=== PATIENT | female | born 1935 | race Caucasian/White ===

== ENCOUNTER 2017-01-04 00:55 | Inpatient (IN) | payer MEDICARE, OTHER ==
[2017-01-04] VITALS (7 sets, daily range): BP systolic 125–166; BP diastolic 55–88
[~2017-01-04] VITALS: Ht 162.6 cm; Wt 68.0 kg
[2017-01-04] MEDS ORDERED: LEVOTHYROXINE50 MCG ORAL (01:05)
[2017-01-04] MEDS ORDERED: SIMVASTATIN40 MG ORAL (01:05)
[2017-01-04] MEDS ORDERED: STARLIX60 MG ORAL (01:05)
[2017-01-04] MEDS ORDERED: BUPROPION HCL150 M3 ORAL (01:05)
[2017-01-04] MEDS ORDERED: ASPIR 8181 MG ORAL (01:05)
[2017-01-04] MEDS ORDERED: JENTADUETO 2.51 EAC2 PO (01:05)
[2017-01-04] MEDS ORDERED: LOSARTAN POTASS25 MG ORAL (01:05)
[2017-01-04] MEDS ORDERED: ATIVAN0.5 MG ORAL (01:09)
[2017-01-04 02:03] LABS: APPEARANCE,URINE CLEAR; KETONES,URINE NEGATIVE (NEGATIVE); LEUKOCYTE ESTERASE ,URINE NEGATIVE (NEGATIVE); NITRITE,URINE NEGATIVE (NEGATIVE); PH,URINE 6 (4.5-8.0); PROTEIN,URINE NEGATIVE (NEGATIVE); UROBILINOGEN,URINE NORMAL MG/DL (0.0-1.0)
[2017-01-04 02:04] LABS: BASOPHILS % (AUTO) 0.7 % (0.0-2.0); EOSINOPHILS % (AUTO) 1.4 % (0.0-3.0); LYMPHOCYTES % (AUTO) 21.3 % (20.0-45.0); MEAN CORPUSCULAR HEMOGLOBIN 29.8 PG (27.0-31.0); MEAN CORPUSCULAR VOLUME 90 FL (80-99); MEAN PLATELET VOLUME 7.4 FL (6.5-10.1); MONOCYTES % (AUTO) 9.6 % (1.0-10.0); NEUTROPHILS % (AUTO) 66.9 % (45.0-75.0); PLATELET COUNT 279 K/UL (150-450); RED BLOOD COUNT 4.04 M/UL (4.20-5.40); RED CELL DISTRIBUTION WIDTH 12.4 % (11.6-14.8); WHITE BLOOD COUNT 7.9 K/UL (4.8-10.8)
[2017-01-04 02:05] LABS: RBC,URINE 0-2 /HPF (0 - 2); SQUAMOUS EPITHELIAL CELL,UR FEW /LPF (NONE/OCC); WBC,URINE 0 /HPF (0 - 2)
[2017-01-04 02:16] LABS: ALANINE AMINOTRANSFERASE 9 U/L (3-33); ANION GAP 13 (5-15); ASPARTATE AMINO TRANSFERASE 12 U/L (5-40); CALCIUM 10.5 mg/dL (8.6-10.2); CARBON DIOXIDE 24 mEQ/L (20-30); CHLORIDE 97 mEQ/L (98-107); CREATININE 0.9 mg/dL (0.5-0.9); HEMOLYSIS 8; POTASSIUM 4.4 mEQ/L (3.4-4.9); SODIUM 134 mEQ/L (135-145); TOTAL PROTEIN 7.2 g/dL (6.6-8.7)
[2017-01-04 02:17] LABS: TROPONIN I < 0.30 ng/mL (<=0.30)
--- NOTE | 2017-01-04 02:38 | Emergency Room Report ---
History of Present Illness General Chief Complaint: Altered Mental Status Source: Family Member, EMS Present Illness HPI Is an 81-year-old female with end-stage Alzheimer. Her daughter says contacted in-house hospice. Patient has been increasing agitation. They started her on low-dose Ativan. She is started yesterday. She had one dose today but that did not help. She was given temazepam also. Her son called 911 because her agitation is much worse. She keep her to get out of bed. They had to call 911. Now she is very sedated sleeping. There is no fever or chills. No nausea no vomiting. Similar symptom last week. Allergies: Coded Allergies: PENICILLINS (Unverified Allergy, Unknown, 01/04/17) Patient History Past Medical History: see triage record, old chart reviewed Past Surgical History: other Pertinent Family History: none Social History: Denies: smoking Now: No Immunizations: other Reviewed Nursing Documentation: PMH: Agreed, PSxH: Agreed Nursing Documentation-PM Past Medical History: No History, Except For Hx Diabetes: Yes History Of Psychiatric Problem: Yes - alzheimers dementia Review of Systems Constitutional: Reports: malaise, weakness Eye: Denies: eye pain, blurred vision ENT: Denies: ear pain, nose congestion, throat swelling Respiratory: Denies: cough, shortness of breath Cardiovascular: Denies: chest pain, palpitations Gastrointestinal: Denies: abdominal pain, diarrhea, nausea, vomiting Musculoskeletal: Denies: back pain, joint pain Skin: Denies: rash Neurological: Denies: headache, numbness Endocrine: Denies: increased thirst, increased urine Hematologic/Lymphatic: Denies: easy bruising All Other Systems: negative except mentioned in HPI Physical Exam Vital Signs Date Time Temp Pulse Resp B/P (MAP) Pulse Ox O2 Delivery O2 Flow Rate FiO2 01/04/17 00:47 97.5 65 12 128/65 93 Room Air vitals normal Sp02 EP Interpretation: reviewed, normal General Appearance: well appearing, no apparent distress, other - Sedated Head: normocephalic, atraumatic Eyes: bilateral eye PERRL, bilateral eye EOMI ENT: hearing grossly normal, normal pharynx Neck: full range of motion, supple, no meningismus Respiratory: chest non-tender, lungs clear, normal breath sounds Cardiovascular #1: regular rate, rhythm, no murmur Gastrointestinal: normal bowel sounds, non tender, no mass, no organomegaly, no bruit, non-distended Musculoskeletal: back normal, normal range of motion Neurologic: grossly normal Psychiatric: mood/affect normal Skin: warm/dry Medical Decision Making Diagnostic Impression: Primary Impression: Altered mental status Qualified Codes: R41.82 - Altered mental status, unspecified Additional Impressions: Encephalopathy acute Alzheimer's dementia with behavioral disturbance Qualified Codes: G30.1 - Alzheimer's disease with late onset; F02.81 - Dementia in other diseases classified elsewhere with behavioral disturbance ER Course patient present with exacerbation of her Alzheimer. No evidence of infection. No evidence of TIA or CVA. Family has a hard time taking care of her at home. Will admit for medication management. For now her DO NOT RESUSCITATE status is up in the air. Lab Results Impression labs normal EKG Diagnostic Results Rate: normal Rhythm: NSR ST Segments: no acute changes Rhythm Strip Diag. Results Rhythm Strip Time: 02:38 EP Interpretation: yes Rate: 59 Rhythm: NSR, no PVC's, no ectopy Chest X-Ray Diagnostic Results Chest X-Ray Diagnostic Results : Chest X-Ray Ordered: Yes # of Views/Limited/Complete: 1 View Indication: Shortness of Breath EP Interpretation: Yes Interpretation: no consolidation, no effusion, no pneumothorax, no acute cardiopulmonary disease Interpreting ER Provider: Electronically signed by Fan Bautista MD CT/MRI/US Diagnostic Results CT/MRI/US Diagnostic Results : Imaging Test Ordered: CT head Impression read by radiologist. Negative. Last Vital Signs Date Time Temp Pulse Resp B/P (MAP) Pulse Ox O2 Delivery O2 Flow Rate FiO2 01/04/17 00:47 97.5 65 12 128/65 93 Room Air Status: improved Disposition: ADMITTED INPATIENT Condition: Serious FAN BAUTISTA M.D. Jan 04, 2017 02:38
[2017-01-04] MEDS ORDERED: Haloperidol 5mg/ml Inj IM ONE (04:00)
[2017-01-04] MEDS ORDERED: Mylanta II UD 30ml ORAL PRN (07:15)
[2017-01-04] MEDS ORDERED: Morphine Sulfate 2mg/ml Inj IVP PRN (07:15)
[2017-01-04] MEDS ORDERED: Miralax 17gm pkt ORAL PRN (07:15)
[2017-01-04] MEDS ORDERED: Zolpidem 5mg tab ORAL PRN (07:15)
[2017-01-04] MEDS: BuPROPion SR 150mg tab ORAL SCH ×2 (09:00→20:26)
[2017-01-04] MEDS: LORazepam 0.5mg tab ORAL SCH ×3 (09:43→17:40)
[2017-01-04] MEDS: Losartan 25mg tab ORAL SCH (09:44)
--- NOTE | 2017-01-04 09:44 | Diagnostic Imaging Report ---
Indication: Altered mental status Technique: Contiguous 5 mm thick transaxial imaging of the head obtained in a Siemens Sensation [address] scanner. Soft tissue and bone windows generated. Total Dose length Product (DLP): [address] Dose Index Volume (CTDIvol): 70.38, 0.15 mGy Comparison: none Findings: There is moderate prominence of the ventricles, basal cisterns, and cerebral sulci consistent with atrophy. Moderate, nonspecific, white matter hypoattenuation is noted throughout the brain consistent with chronic small vessel disease. There is no midline shift, edema, acute hemorrhage, mass effect, or abnormal extra-axial fluid collections. Bones and extra osseous soft tissues are unremarkable. Impression: No acute intracranial bleed, mass effect or edema. Moderate atrophy of the brain. Evidence of chronic small vessel disease involving white matter tracts. The CT scanner at [facility] is accredited by the [employer] and the scans are performed using dose optimization techniques as appropriate to a performed exam including Automatic Exposure control.
--- NOTE | 2017-01-04 10:31 | Diagnostic Imaging Report ---
Indication: Dyspnea Comparison: None A single view chest radiograph was obtained. Findings: Cardiomediastinal appearance is within normal limits for age. Pulmonary vascularity is appropriate. The diaphragmatic contour is smooth and costophrenic angles are sharp. No pleural effusions are identified. The bones are moderately osteopenic. Impression: No acute findings
--- NOTE | 2017-01-04 15:34 | Cardiology Report ---
APPROVED REPORT EKG Measurement Heart [id number] Normal sinus rhythm Left axis deviation Septal infarct, age undetermined Abnormal ECG
[2017-01-04] MEDS: LORazepam Inj 2mg/ml 1ml IV PRN (20:26)
[2017-01-04] MEDS: Heparin 5000 units/ml inj SUBQ SCH (20:27)
[2017-01-04] MEDS ORDERED: Atorvastatin 20mg tab ORAL SCH (21:00)
--- NOTE | 2017-01-04 22:11 | History and Physical ---
History of Present Illness General Date patient seen: Jan 04, 2017 Reason for Hospitalization: Altered Mental Status Present Illness HPI 81-year-old female with end-stage Alzheimer brought in by paramedics with CC of increasing agitation. They started her on low-dose Ativan, but that did not help. She was given temazepam also. Her son called 911 because her agitation is much worse. She keep her to get out of bed. She is admitted for uncontrollable behavior. She is awake and confused and doesn't seem to be in acute distress. Pt's choco is at bed site who gives the information. Allergies: Coded Allergies: PENICILLINS (Unverified Allergy, Unknown, 01/04/17) Medication History Scheduled Aspirin* (Aspir 81*), 81 MG ORAL DAILY, (Reported) Bupropion Hcl* (Bupropion Hcl Sr*), 150 MG ORAL EVERY 12 HOURS, (Reported) Levothyroxine Sodium* (Levothyroxine Sodium*), 50 MCG ORAL DAILY, (Reported) Linagliptin/Metformin Hcl (Jentadueto 2.5 Mg-1000 Mg Tab), 1 EACH PO BID, ( Reported) Lorazepam* (Ativan*), 0.5 MG ORAL THREE TIMES A DAY, (Reported) Losartan Potassium* (Losartan Potassium*), 100 MG ORAL DAILY, (Reported) Nateglinide* (Starlix*), 120 MG ORAL THREE TIMES A DAY, (Reported) Simvastatin (Zocor), 40 MG ORAL BEDTIME, (Reported) Patient History Healthcare decision maker Resuscitation status Full Code Advanced Directive on File No Past Medical/Surgical History Past Medical/Surgical History: (1) Alzheimer's dementia with behavioral disturbance Review of Systems All Other Systems: negative except mentioned in HPI Physical Exam General Appearance: WD/WN, no apparent distress Lines, tubes and drains: peripheral HEENT: normocephalic, atraumatic Neck: non-tender, normal alignment Respiratory/Chest: chest wall non-tender, lungs clear Cardiovascular/Chest: normal peripheral pulses, normal rate Abdomen: normal bowel sounds, non tender, abnormal bowel sounds Genitourinary/Rectal: normal genital exam Extremities: normal range of motion, non-tender Skin Exam: normal pigmentation 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 Last 24 Hour Vital Signs Date Time Temp Pulse Resp B/P (MAP) Pulse Ox O2 Delivery O2 Flow Rate FiO2 01/04/17 20:00 97.8 84 19 166/86 96 Room Air 01/04/17 16:44 97.0 78 20 162/88 98 Room Air 01/04/17 09:44 125/66 01/04/17 08:33 97.2 62 19 125/66 98 Room Air 01/04/17 05:00 97.3 56 18 136/60 95 Room Air 01/04/17 04:50 98.0 63 15 140/60 98 Room Air 01/04/17 04:40 98.0 63 15 140/60 98 Room Air 01/04/17 03:05 98.2 68 16 148/63 99 Room Air 01/04/17 01:00 98.1 57 15 152/55 98 Room Air 01/04/17 00:47 97.5 65 12 128/65 93 Room Air Intake and Output 01/04/17 01/05/17 19:00 07:00 Intake Total 480 ml Balance 480 ml Intake Oral 480 ml # Voids 2 Laboratory Tests Test 01/04/17 01:45 White Blood Count 7.9 K/UL (4.8-10.8) Red Blood Count 4.04 M/UL (4.20-5.40) L Hemoglobin 12.0 G/DL (12.0-16.0) Hematocrit 36.5 % (37.0-47.0) L Mean Corpuscular Volume 90 FL (80-99) Mean Corpuscular Hemoglobin 29.8 PG (27.0-31.0) Mean Corpuscular Hemoglobin Concent 33.0 G/DL (32.0-36.0) Red Cell Distribution Width 12.4 % (11.6-14.8) Platelet Count 279 K/UL (150-450) Mean Platelet Volume 7.4 FL (6.5-10.1) Neutrophils (%) (Auto) 66.9 % (45.0-75.0) Lymphocytes (%) (Auto) 21.3 % (20.0-45.0) Monocytes (%) (Auto) 9.6 % (1.0-10.0) Eosinophils (%) (Auto) 1.4 % (0.0-3.0) Basophils (%) (Auto) 0.7 % (0.0-2.0) Urine Color Yellow Urine Appearance Clear Urine pH 6 (4.5-8.0) Urine Specific [place] 1.010 (1.005-1.035) Urine Protein Negative (NEGATIVE) Urine Glucose (UA) Negative (NEGATIVE) Urine Ketones Negative (NEGATIVE) Urine Occult Blood Negative (NEGATIVE) Urine Nitrite Negative (NEGATIVE) Urine Bilirubin Negative (NEGATIVE) Urine Urobilinogen Normal MG/DL (0.0-1.0) Urine Leukocyte Esterase Negative (NEGATIVE) Urine RBC 0-2 /HPF (0 - 2) Urine WBC 0 /HPF (0 - 2) Urine Squamous Epithelial Cells Few /LPF (NONE/OCC) Urine Bacteria None /HPF (NONE) Sodium Level 134 mEQ/L (135-145) L Potassium Level 4.4 mEQ/L (3.4-4.9) Chloride Level 97 mEQ/L (98-107) L Carbon Dioxide Level 24 mEQ/L (20-30) Anion Gap 13 (5-15) Blood Urea Nitrogen 22 mg/dL (7-23) Creatinine 0.9 mg/dL (0.5-0.9) Estimat Glomerular Filtration Rate mL/min (>60) Glucose Level 117 mg/dL (74-106) H Calcium Level 10.5 mg/dL (8.6-10.2) H Total Bilirubin 0.2 mg/dL (0.0-1.2) Aspartate Amino Transf (AST/SGOT) 12 U/L (5-40) Alanine Aminotransferase (ALT/SGPT) 9 U/L (3-33) Alkaline Phosphatase 66 U/L (35-104) Troponin I < 0.30 ng/mL (<=0.30) Total Protein 7.2 g/dL (6.6-8.7) Albumin 3.6 g/dL (3.5-5.2) Globulin 3.6 g/dL Albumin/Globulin Ratio 1.0 (1.0-2.7) Height (Feet): 5 Height (Inches): 4.00 Weight (Pounds): 150 Medications Current Medications Medications (Trade) Dose Ordered Sig/Taryn Route PRN Reason Start Time Stop Time Status Last Admin Dose Admin Acetaminophen (Tylenol) 650 mg Q4H PRN ORAL fever 01/04/17 07:15 02/03/17 07:14 Al Hydroxide/Mg Hydroxide (Mylanta II) 30 ml Q6H PRN ORAL dyspepsia 01/04/17 07:15 02/03/17 07:14 Aspirin (ASA) 81 mg DAILY ORAL 01/05/17 09:00 02/04/17 08:59 Atorvastatin Calcium (Lipitor) 20 mg QHS ORAL 01/04/17 21:00 02/03/17 20:59 01/04/17 20:25 Bupropion HCl (Wellbutrin SR) 150 mg EVERY 12 HOURS ORAL 01/04/17 09:00 02/03/17 08:59 01/04/17 20:26 Dextrose (Dextrose 50%) STAT PRN IV Hypoglycemia 01/04/17 07:15 02/03/17 07:14 Ergocalciferol (Drisdol) 50,000 intlu QWEEK ORAL 01/09/17 09:00 02/08/17 08:59 Heparin Sodium (Porcine) (Heparin 5000 units/ml) 5,000 units EVERY 12 HOURS SUBQ 01/04/17 21:00 02/03/17 20:59 01/04/17 20:27 Levothyroxine Sodium (Synthroid) 50 mcg DAILY ORAL 01/04/17 09:00 02/03/17 08:59 01/04/17 09:43 Lorazepam (Ativan 2mg/ml 1ml) 0.5 mg Q4H PRN IV For Anxiety 01/04/17 07:15 01/11/17 07:14 01/04/17 20:26 Lorazepam (Ativan) 0.5 mg THREE TIMES A DAY ORAL 01/04/17 09:00 01/11/17 08:59 01/04/17 13:19 Losartan Potassium (Cozaar) 100 mg DAILY ORAL 01/04/17 09:00 02/03/17 08:59 01/04/17 09:44 Morphine Sulfate (Morphine Sulfate) 1 mg EVERY 4 HOURS PRN IVP For Pain 01/04/17 07:15 01/11/17 07:14 Nateglinide (Starlix) 120 mg TIAC ORAL 01/04/17 13:00 02/03/17 12:59 01/04/17 17:34 Ondansetron HCl (Zofran) 4 mg Q6H PRN IVP Nausea & Vomiting 01/04/17 07:15 02/03/17 07:14 Polyethylene Glycol (Miralax) 17 gm HSPRN PRN ORAL Constipation 01/04/17 07:15 02/03/17 07:14 Solifenacin (Vesicare) 10 mg DAILY ORAL 01/05/17 09:00 02/04/17 08:59 Zolpidem Tartrate (Ambien) 5 mg HSPRN PRN ORAL Insomnia 01/04/17 07:15 01/11/17 07:14 Assessment/Plan Problem List: (1) Encephalopathy acute ICD Codes: G93.40 - Encephalopathy, unspecified SNOMED: 0197021 (2) Alzheimer's dementia with behavioral disturbance ICD Codes: G30.8 - Other Alzheimer's disease; F02.81 - Dementia in other diseases classified elsewhere with behavioral disturbance SNOMED: 9071034608714 Qualifiers: Qualified Codes: G30.1 - Alzheimer's disease with late onset; F02.81 - Dementia in other diseases classified elsewhere with behavioral disturbance (3) Altered mental status ICD Codes: R41.82 - Altered mental status, unspecified SNOMED: [id number] Qualifiers: Qualified Codes: R41.82 - Altered mental status, unspecified Assessment/Plan psych evaluation swallow study comfort care dvt prophylaxis GUI LINDO Jan 04, 2017 22:11
[2017-01-05] VITALS (8 sets, daily range): BP systolic 90–157; BP diastolic 44–78
[2017-01-05] MEDS: LORazepam Inj 2mg/ml 1ml IV PRN (01:08)
[2017-01-05 07:08] LABS: BASOPHILS % (AUTO) 0.7 % (0.0-2.0); EOSINOPHILS % (AUTO) 1.9 % (0.0-3.0); LYMPHOCYTES % (AUTO) 27.1 % (20.0-45.0); MEAN CORPUSCULAR HEMOGLOBIN 31.2 PG (27.0-31.0); MEAN CORPUSCULAR HGB CONC 34.2 G/DL (32.0-36.0); MEAN CORPUSCULAR VOLUME 91 FL (80-99); MEAN PLATELET VOLUME 6.9 FL (6.5-10.1); NEUTROPHILS % (AUTO) 63.3 % (45.0-75.0); PLATELET COUNT 246 K/UL (150-450); RED BLOOD COUNT 4.29 M/UL (4.20-5.40); RED CELL DISTRIBUTION WIDTH 12.4 % (11.6-14.8); WHITE BLOOD COUNT 7.1 K/UL (4.8-10.8)
[2017-01-05 07:34] LABS: ALANINE AMINOTRANSFERASE 8 U/L (3-33); ANION GAP 14 (5-15); ASPARTATE AMINO TRANSFERASE 13 U/L (5-40); CALCIUM 10.8 mg/dL (8.6-10.2); CARBON DIOXIDE 23 mEQ/L (20-30); CHLORIDE 99 mEQ/L (98-107); CHOLESTEROL 164 mg/dL (< 200); CHOLESTEROL/HDL RATIO 2.9 (3.3-4.4); CREATININE 0.9 mg/dL (0.5-0.9); HEMOLYSIS 24; LDL CHOLESTEROL (CALC.) 87 mg/dL (60-99); POTASSIUM 4.1 mEQ/L (3.4-4.9); SODIUM 136 mEQ/L (135-145); TOTAL PROTEIN 7.7 g/dL (6.6-8.7)
[2017-01-05] MEDS ORDERED: Aspirin Baby 81mg ORAL SCH (09:00)
[2017-01-05] MEDS: Solifenacin 10mg tab ORAL SCH (09:16)
[2017-01-05] MEDS: LORazepam 0.5mg tab ORAL SCH ×2 (09:18→13:00)
[2017-01-05] MEDS: Losartan 25mg tab ORAL SCH (09:20)
[2017-01-05] MEDS: Heparin 5000 units/ml inj SUBQ SCH ×2 (09:35→21:41)
--- NOTE | 2017-01-05 16:10 | Pulmonology Progress Note ---
Assessment/Plan Problems: (1) Encephalopathy acute (2) Alzheimer's dementia with behavioral disturbance (3) Altered mental status Assessment/Plan dc ativan haldol for agitation awaiting psych evaluation pt/ot Subjective ROS Limited/Unobtainable: No Constitutional: Reports: no symptoms HEENT: Repors: no symptoms Respiratory: Reports: no symptoms Allergies: Coded Allergies: PENICILLINS (Unverified Allergy, Unknown, 01/04/17) Objective Last 24 Hour Vital Signs Date Time Temp Pulse Resp B/P (MAP) Pulse Ox O2 Delivery O2 Flow Rate FiO2 01/05/17 11:58 97.3 77 19 110/44 97 Room Air 01/05/17 09:20 141/74 01/05/17 08:36 97.2 89 20 157/73 97 Room Air 01/05/17 04:00 97.0 78 18 141/74 95 Room Air 01/05/17 00:00 97.9 62 18 103/47 92 Room Air 01/04/17 20:00 97.8 84 19 166/86 96 Room Air 01/04/17 16:44 97.0 78 20 162/88 98 Room Air General Appearance: WD/WN HEENT: normocephalic, atraumatic Respiratory/Chest: chest wall non-tender, lungs clear Breasts: no masses Cardiovascular: normal peripheral pulses, normal rate, no JVD Abdomen: normal bowel sounds, soft, non tender Genitourinary: normal external genitalia Extremities: no cyanosis, no clubbing 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, no motor/sensory deficits Lymphatic: no neck adenopathy Laboratory Tests 01/05/17 05:50: White Blood Count 7.1, Red Blood Count 4.29, Hemoglobin 13.4, Hematocrit 39.1, Mean Corpuscular Volume 91, Mean Corpuscular Hemoglobin 31.2H, Mean Corpuscular Hemoglobin Concent 34.2, Red Cell Distribution Width 12.4, Platelet Count 246, Mean Platelet Volume 6.9, Neutrophils (%) (Auto) 63.3, Lymphocytes (%) (Auto) 27.1, Monocytes (%) (Auto) 7.0, Eosinophils (%) (Auto) 1.9, Basophils (%) (Auto ) 0.7, Sodium Level 136, Potassium Level 4.1, Chloride Level 99, Carbon Dioxide Level 23, Anion Gap 14, Blood Urea Nitrogen 21, Creatinine 0.9, Estimat Glomerular Filtration Rate , Glucose Level 150H, Calcium Level 10.8H, Total Bilirubin 0.3, Aspartate Amino Transf (AST/SGOT) 13, Alanine Aminotransferase ( ALT/SGPT) 8, Alkaline Phosphatase 74, Total Protein 7.7, Albumin 4.0, Globulin 3.7, Albumin/Globulin Ratio 1.0, Triglycerides Level 100, Cholesterol Level 164 , LDL Cholesterol 87, HDL Cholesterol 57, Cholesterol/HDL Ratio 2.9L, Thyroid Stimulating Hormone (TSH) 2.360 Current Medications Medications (Trade) Dose Ordered Sig/Taryn Route PRN Reason Start Time Stop Time Status Last Admin Dose Admin Acetaminophen (Tylenol) 650 mg Q4H PRN ORAL fever 01/04/17 07:15 02/03/17 07:14 Al Hydroxide/Mg Hydroxide (Mylanta II) 30 ml Q6H PRN ORAL dyspepsia 01/04/17 07:15 02/03/17 07:14 Aspirin (ASA) 81 mg DAILY ORAL 01/05/17 09:00 02/04/17 08:59 01/05/17 09:18 Atorvastatin Calcium (Lipitor) 20 mg QHS ORAL 01/04/17 21:00 02/03/17 20:59 01/04/17 20:25 Dextrose (Dextrose 50%) STAT PRN IV Hypoglycemia 01/04/17 07:15 02/03/17 07:14 Ergocalciferol (Drisdol) 50,000 intlu QWEEK ORAL 01/09/17 09:00 02/08/17 08:59 Heparin Sodium (Porcine) (Heparin 5000 units/ml) 5,000 units EVERY 12 HOURS SUBQ 01/04/17 21:00 02/03/17 20:59 01/05/17 09:35 Levothyroxine Sodium (Synthroid) 50 mcg DAILY ORAL 01/04/17 09:00 02/03/17 08:59 01/05/17 09:18 Lorazepam (Ativan 2mg/ml 1ml) 0.5 mg Q4H PRN IV For Anxiety 01/04/17 07:15 01/11/17 07:14 01/05/17 01:08 Lorazepam (Ativan) 0.5 mg THREE TIMES A DAY ORAL 01/04/17 09:00 01/11/17 08:59 01/05/17 09:18 Losartan Potassium (Cozaar) 50 mg DAILY ORAL 01/06/17 09:00 02/05/17 08:59 Losartan Potassium (Cozaar) 100 mg DAILY ORAL 01/04/17 09:00 02/03/17 08:59 01/05/17 09:20 Morphine Sulfate (Morphine Sulfate) 1 mg EVERY 4 HOURS PRN IVP For Pain 01/04/17 07:15 01/11/17 07:14 Nateglinide (Starlix) 120 mg TIAC ORAL 01/04/17 13:00 02/03/17 12:59 01/05/17 11:49 Ondansetron HCl (Zofran) 4 mg Q6H PRN IVP Nausea & Vomiting 01/04/17 07:15 02/03/17 07:14 Polyethylene Glycol (Miralax) 17 gm HSPRN PRN ORAL Constipation 01/04/17 07:15 02/03/17 07:14 Risperidone (RisperDAL) 1 mg BEDTIME ORAL 01/05/17 21:00 02/04/17 20:59 Solifenacin (Vesicare) 10 mg DAILY ORAL 01/05/17 09:00 02/04/17 08:59 01/05/17 09:16 Zolpidem Tartrate (Ambien) 5 mg HSPRN PRN ORAL Insomnia 01/04/17 07:15 01/11/17 07:14 GUI LINDO Jan 05, 2017 16:10
[2017-01-05] MEDS ORDERED: Haloperidol 5mg/ml Inj IM PRN (16:15)
--- NOTE | 2017-01-05 18:41 | Pulmonology Progress Note ---
Assessment/Plan Problems: (1) Encephalopathy acute (2) Alzheimer's dementia with behavioral disturbance (3) Altered mental status Assessment/Plan dc ativan haldol for agitation awaiting psych evaluation pt/ot Subjective ROS Limited/Unobtainable: No Interval Events: was confused earlier Constitutional: Reports: no symptoms HEENT: Repors: no symptoms Allergies: Coded Allergies: PENICILLINS (Unverified Allergy, Unknown, 01/04/17) Objective Last 24 Hour Vital Signs Date Time Temp Pulse Resp B/P (MAP) Pulse Ox O2 Delivery O2 Flow Rate FiO2 01/05/17 16:00 96.8 70 18 140/78 94 Room Air 01/05/17 13:00 103/52 01/05/17 12:20 90/48 01/05/17 11:58 97.3 77 19 110/44 97 Room Air 01/05/17 09:20 141/74 01/05/17 08:36 97.2 89 20 157/73 97 Room Air 01/05/17 04:00 97.0 78 18 141/74 95 Room Air 01/05/17 00:00 97.9 62 18 103/47 92 Room Air 01/04/17 20:00 97.8 84 19 166/86 96 Room Air General Appearance: WD/WN HEENT: normocephalic, atraumatic Respiratory/Chest: chest wall non-tender, lungs clear Breasts: no masses Cardiovascular: normal peripheral pulses Abdomen: normal bowel sounds, soft, non tender Genitourinary: normal external genitalia Extremities: no clubbing Skin: no ulcers 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, no motor/sensory deficits Laboratory Tests 01/05/17 05:50: White Blood Count 7.1, Red Blood Count 4.29, Hemoglobin 13.4, Hematocrit 39.1, Mean Corpuscular Volume 91, Mean Corpuscular Hemoglobin 31.2H, Mean Corpuscular Hemoglobin Concent 34.2, Red Cell Distribution Width 12.4, Platelet Count 246, Mean Platelet Volume 6.9, Neutrophils (%) (Auto) 63.3, Lymphocytes (%) (Auto) 27.1, Monocytes (%) (Auto) 7.0, Eosinophils (%) (Auto) 1.9, Basophils (%) (Auto ) 0.7, Sodium Level 136, Potassium Level 4.1, Chloride Level 99, Carbon Dioxide Level 23, Anion Gap 14, Blood Urea Nitrogen 21, Creatinine 0.9, Estimat Glomerular Filtration Rate , Glucose Level 150H, Calcium Level 10.8H, Total Bilirubin 0.3, Aspartate Amino Transf (AST/SGOT) 13, Alanine Aminotransferase ( ALT/SGPT) 8, Alkaline Phosphatase 74, Total Protein 7.7, Albumin 4.0, Globulin 3.7, Albumin/Globulin Ratio 1.0, Triglycerides Level 100, Cholesterol Level 164 , LDL Cholesterol 87, HDL Cholesterol 57, Cholesterol/HDL Ratio 2.9L, Thyroid Stimulating Hormone (TSH) 2.360 Current Medications Medications (Trade) Dose Ordered Sig/Taryn Route PRN Reason Start Time Stop Time Status Last Admin Dose Admin Acetaminophen (Tylenol) 650 mg Q4H PRN ORAL fever 01/04/17 07:15 02/03/17 07:14 Al Hydroxide/Mg Hydroxide (Mylanta II) 30 ml Q6H PRN ORAL dyspepsia 01/04/17 07:15 02/03/17 07:14 Dextrose (Dextrose 50%) STAT PRN IV Hypoglycemia 01/04/17 07:15 02/03/17 07:14 Haloperidol Lactate (Haldol) 5 mg Q6H PRN IM Agitation 01/05/17 16:15 02/04/17 16:14 Heparin Sodium (Porcine) (Heparin 5000 units/ml) 5,000 units EVERY 12 HOURS SUBQ 01/04/17 21:00 02/03/17 20:59 01/05/17 09:35 Levothyroxine Sodium (Synthroid) 50 mcg DAILY ORAL 01/04/17 09:00 02/03/17 08:59 01/05/17 09:18 Losartan Potassium (Cozaar) 50 mg DAILY ORAL 01/06/17 09:00 02/05/17 08:59 Morphine Sulfate (Morphine Sulfate) 1 mg EVERY 4 HOURS PRN IVP For Pain 01/04/17 07:15 01/11/17 07:14 Nateglinide (Starlix) 120 mg TIAC ORAL 01/04/17 13:00 02/03/17 12:59 01/05/17 16:45 Ondansetron HCl (Zofran) 4 mg Q6H PRN IVP Nausea & Vomiting 01/04/17 07:15 02/03/17 07:14 Polyethylene Glycol (Miralax) 17 gm HSPRN PRN ORAL Constipation 01/04/17 07:15 02/03/17 07:14 Risperidone (RisperDAL) 0.5 mg HSPRN PRN ORAL Agitation 01/05/17 21:00 02/04/17 20:59 Solifenacin (Vesicare) 10 mg DAILY ORAL 01/05/17 09:00 02/04/17 08:59 01/05/17 09:16 GUI LINDO Jan 05, 2017 18:41
--- NOTE | 2017-01-05 23:26 | Consultation ---
History of Present Illness General Date patient seen: Jan 05, 2017 Chief Complaint: Altered Mental Status Present Illness Allergies: Coded Allergies: PENICILLINS (Unverified Allergy, Unknown, 01/04/17) Medication History Scheduled Aspirin* (Aspir 81*), 81 MG ORAL DAILY, (Reported) Bupropion Hcl* (Bupropion Hcl Sr*), 150 MG ORAL EVERY 12 HOURS, (Reported) Levothyroxine Sodium* (Levothyroxine Sodium*), 50 MCG ORAL DAILY, (Reported) Linagliptin/Metformin Hcl (Jentadueto 2.5 Mg-1000 Mg Tab), 1 EACH PO BID, ( Reported) Lorazepam* (Ativan*), 0.5 MG ORAL THREE TIMES A DAY, (Reported) Losartan Potassium* (Losartan Potassium*), 100 MG ORAL DAILY, (Reported) Nateglinide* (Starlix*), 120 MG ORAL THREE TIMES A DAY, (Reported) Simvastatin (Zocor), 40 MG ORAL BEDTIME, (Reported) Patient History Healthcare decision maker Resuscitation status Full Code Advanced Directive on File No Physical Exam Last 24 Hour Vital Signs Date Time Temp Pulse Resp B/P (MAP) Pulse Ox O2 Delivery O2 Flow Rate FiO2 01/05/17 20:26 97.7 70 18 125/55 94 Room Air 01/05/17 16:00 96.8 70 18 140/78 94 Room Air 01/05/17 13:00 103/52 01/05/17 12:20 90/48 01/05/17 11:58 97.3 77 19 110/44 97 Room Air 01/05/17 09:20 141/74 01/05/17 08:36 97.2 89 20 157/73 97 Room Air 01/05/17 04:00 97.0 78 18 141/74 95 Room Air 01/05/17 00:00 97.9 62 18 103/47 92 Room Air Intake and Output 01/05/17 01/06/17 19:00 07:00 Intake Total 250 ml Balance 250 ml Intake Oral 250 ml # Voids 3 Laboratory Tests Test 01/05/17 05:50 White Blood Count 7.1 K/UL (4.8-10.8) Red Blood Count 4.29 M/UL (4.20-5.40) Hemoglobin 13.4 G/DL (12.0-16.0) Hematocrit 39.1 % (37.0-47.0) Mean Corpuscular Volume 91 FL (80-99) Mean Corpuscular Hemoglobin 31.2 PG (27.0-31.0) H Mean Corpuscular Hemoglobin Concent 34.2 G/DL (32.0-36.0) Red Cell Distribution Width 12.4 % (11.6-14.8) Platelet Count 246 K/UL (150-450) Mean Platelet Volume 6.9 FL (6.5-10.1) Neutrophils (%) (Auto) 63.3 % (45.0-75.0) Lymphocytes (%) (Auto) 27.1 % (20.0-45.0) Monocytes (%) (Auto) 7.0 % (1.0-10.0) Eosinophils (%) (Auto) 1.9 % (0.0-3.0) Basophils (%) (Auto) 0.7 % (0.0-2.0) Sodium Level 136 mEQ/L (135-145) Potassium Level 4.1 mEQ/L (3.4-4.9) Chloride Level 99 mEQ/L (98-107) Carbon Dioxide Level 23 mEQ/L (20-30) Anion Gap 14 (5-15) Blood Urea Nitrogen 21 mg/dL (7-23) Creatinine 0.9 mg/dL (0.5-0.9) Estimat Glomerular Filtration Rate mL/min (>60) Glucose Level 150 mg/dL (74-106) H Calcium Level 10.8 mg/dL (8.6-10.2) H Total Bilirubin 0.3 mg/dL (0.0-1.2) Aspartate Amino Transf (AST/SGOT) 13 U/L (5-40) Alanine Aminotransferase (ALT/SGPT) 8 U/L (3-33) Alkaline Phosphatase 74 U/L (35-104) Total Protein 7.7 g/dL (6.6-8.7) Albumin 4.0 g/dL (3.5-5.2) Globulin 3.7 g/dL Albumin/Globulin Ratio 1.0 (1.0-2.7) Triglycerides Level 100 mg/dL (< 150) Cholesterol Level 164 mg/dL (< 200) LDL Cholesterol 87 mg/dL (60-99) HDL Cholesterol 57 mg/dL (> 60) Cholesterol/HDL Ratio 2.9 (3.3-4.4) L Thyroid Stimulating Hormone (TSH) 2.360 uIU/mL (0.300-4.500) Height (Feet): 5 Height (Inches): 4.00 Weight (Pounds): 150 Medications Current Medications Medications (Trade) Dose Ordered Sig/Taryn Route PRN Reason Start Time Stop Time Status Last Admin Dose Admin Acetaminophen (Tylenol) 650 mg Q4H PRN ORAL fever 01/04/17 07:15 02/03/17 07:14 Al Hydroxide/Mg Hydroxide (Mylanta II) 30 ml Q6H PRN ORAL dyspepsia 01/04/17 07:15 02/03/17 07:14 Dextrose (Dextrose 50%) STAT PRN IV Hypoglycemia 01/04/17 07:15 02/03/17 07:14 Haloperidol Lactate (Haldol) 5 mg Q6H PRN IM Agitation 01/05/17 16:15 02/04/17 16:14 Heparin Sodium (Porcine) (Heparin 5000 units/ml) 5,000 units EVERY 12 HOURS SUBQ 01/04/17 21:00 02/03/17 20:59 01/05/17 21:41 Levothyroxine Sodium (Synthroid) 50 mcg DAILY ORAL 01/04/17 09:00 02/03/17 08:59 01/05/17 09:18 Losartan Potassium (Cozaar) 50 mg DAILY ORAL 01/06/17 09:00 02/05/17 08:59 Morphine Sulfate (Morphine Sulfate) 1 mg EVERY 4 HOURS PRN IVP For Pain 01/04/17 07:15 01/11/17 07:14 Nateglinide (Starlix) 120 mg TIAC ORAL 01/04/17 13:00 02/03/17 12:59 01/05/17 16:45 Ondansetron HCl (Zofran) 4 mg Q6H PRN IVP Nausea & Vomiting 01/04/17 07:15 02/03/17 07:14 Polyethylene Glycol (Miralax) 17 gm HSPRN PRN ORAL Constipation 01/04/17 07:15 02/03/17 07:14 Risperidone (RisperDAL) 0.5 mg HSPRN PRN ORAL Agitation 01/05/17 21:00 02/04/17 20:59 01/05/17 21:40 Solifenacin (Vesicare) 10 mg DAILY ORAL 01/05/17 09:00 02/04/17 08:59 01/05/17 09:16 Assessment/Plan Assessment/Plan the family paged several times. the daughter was again agitated as she was told the pt is on Haldol and Ativan. Spoke with both brother and sister who requested to dc haldol. They also would like to take the pt home tomorrow. Chip Durbin M.D. Jan 05, 2017 23:26
--- NOTE | 2017-01-05 23:39 | Consultation ---
History of Present Illness General Chief Complaint: Altered Mental Status Present Illness HPI 81-year-old female with end-stage Alzheimer brought in by paramedics with CC of increasing agitation.During the eval the daughter was beside her and was overtly dramatic. she was interfering with evaluation and stated that he mother was "perfectly fine" but since she got to [facility] [place] the pt decompensated. She stated that Dr. East is perscribed Ativan therefore she has "overdosed". The daughter appeared agitated herself and was illogical. This md explained to her that the pt was started on Ativan and welbutrin before admit. the daughter who was intrusive wanted to look at the list in the computer and asked me to prove her. the daughter stated that she does not like the [facility] [place] and "it's a horrible hospital" she stated that she is trying to protect mother. I attempted to explain delirium and dementia however she would cut me off. At last she calm down and gave consent to low dose of risperdal/ then her son arrived who was very irritable and demanded to explained the whole thing to him again. He was more irritable when this md asked him to talk to his sister. The pt was confused and was unable to participate, the pt was disrobing and per healthcare consulting manager has been more agitated prior admit. Allergies: Coded Allergies: PENICILLINS (Unverified Allergy, Unknown, 01/04/17) Medication History Scheduled Aspirin* (Aspir 81*), 81 MG ORAL DAILY, (Reported) Bupropion Hcl* (Bupropion Hcl Sr*), 150 MG ORAL EVERY 12 HOURS, (Reported) Levothyroxine Sodium* (Levothyroxine Sodium*), 50 MCG ORAL DAILY, (Reported) Linagliptin/Metformin Hcl (Jentadueto 2.5 Mg-1000 Mg Tab), 1 EACH PO BID, ( Reported) Lorazepam* (Ativan*), 0.5 MG ORAL THREE TIMES A DAY, (Reported) Losartan Potassium* (Losartan Potassium*), 100 MG ORAL DAILY, (Reported) Nateglinide* (Starlix*), 120 MG ORAL THREE TIMES A DAY, (Reported) Simvastatin (Zocor), 40 MG ORAL BEDTIME, (Reported) Patient History Limited by: medical condition History Provided By: Patient, Family Member, Medical Record, Caregiver, PMD Healthcare decision maker Resuscitation status Full Code Advanced Directive on File No Past Medical/Surgical History Past Medical/Surgical History: (1) Encephalopathy acute (2) Alzheimer's dementia with behavioral disturbance (3) Altered mental status Review of Systems Constitutional: Reports: malaise, weakness Psychiatric: Reports: anxiety, emotional problems, hallucinations Physical Exam General Appearance: alert, confused, moderate distress, agitated, overweight Neurologic: alert, disoriented, unresponsiveness, depressed affect Last 24 Hour Vital Signs Date Time Temp Pulse Resp B/P (MAP) Pulse Ox O2 Delivery O2 Flow Rate FiO2 01/05/17 20:26 97.7 70 18 125/55 94 Room Air 01/05/17 16:00 96.8 70 18 140/78 94 Room Air 01/05/17 13:00 103/52 01/05/17 12:20 90/48 01/05/17 11:58 97.3 77 19 110/44 97 Room Air 01/05/17 09:20 141/74 01/05/17 08:36 97.2 89 20 157/73 97 Room Air 01/05/17 04:00 97.0 78 18 141/74 95 Room Air 01/05/17 00:00 97.9 62 18 103/47 92 Room Air Intake and Output 01/05/17 01/06/17 19:00 07:00 Intake Total 250 ml Balance 250 ml Intake Oral 250 ml # Voids 3 Laboratory Tests Test 01/05/17 05:50 White Blood Count 7.1 K/UL (4.8-10.8) Red Blood Count 4.29 M/UL (4.20-5.40) Hemoglobin 13.4 G/DL (12.0-16.0) Hematocrit 39.1 % (37.0-47.0) Mean Corpuscular Volume 91 FL (80-99) Mean Corpuscular Hemoglobin 31.2 PG (27.0-31.0) H Mean Corpuscular Hemoglobin Concent 34.2 G/DL (32.0-36.0) Red Cell Distribution Width 12.4 % (11.6-14.8) Platelet Count 246 K/UL (150-450) Mean Platelet Volume 6.9 FL (6.5-10.1) Neutrophils (%) (Auto) 63.3 % (45.0-75.0) Lymphocytes (%) (Auto) 27.1 % (20.0-45.0) Monocytes (%) (Auto) 7.0 % (1.0-10.0) Eosinophils (%) (Auto) 1.9 % (0.0-3.0) Basophils (%) (Auto) 0.7 % (0.0-2.0) Sodium Level 136 mEQ/L (135-145) Potassium Level 4.1 mEQ/L (3.4-4.9) Chloride Level 99 mEQ/L (98-107) Carbon Dioxide Level 23 mEQ/L (20-30) Anion Gap 14 (5-15) Blood Urea Nitrogen 21 mg/dL (7-23) Creatinine 0.9 mg/dL (0.5-0.9) Estimat Glomerular Filtration Rate mL/min (>60) Glucose Level 150 mg/dL (74-106) H Calcium Level 10.8 mg/dL (8.6-10.2) H Total Bilirubin 0.3 mg/dL (0.0-1.2) Aspartate Amino Transf (AST/SGOT) 13 U/L (5-40) Alanine Aminotransferase (ALT/SGPT) 8 U/L (3-33) Alkaline Phosphatase 74 U/L (35-104) Total Protein 7.7 g/dL (6.6-8.7) Albumin 4.0 g/dL (3.5-5.2) Globulin 3.7 g/dL Albumin/Globulin Ratio 1.0 (1.0-2.7) Triglycerides Level 100 mg/dL (< 150) Cholesterol Level 164 mg/dL (< 200) LDL Cholesterol 87 mg/dL (60-99) HDL Cholesterol 57 mg/dL (> 60) Cholesterol/HDL Ratio 2.9 (3.3-4.4) L Thyroid Stimulating Hormone (TSH) 2.360 uIU/mL (0.300-4.500) Height (Feet): 5 Height (Inches): 4.00 Weight (Pounds): 150 Medications Current Medications Medications (Trade) Dose Ordered Sig/Taryn Route PRN Reason Start Time Stop Time Status Last Admin Dose Admin Acetaminophen (Tylenol) 650 mg Q4H PRN ORAL fever 01/04/17 07:15 02/03/17 07:14 Al Hydroxide/Mg Hydroxide (Mylanta II) 30 ml Q6H PRN ORAL dyspepsia 8/29/17 07:15 02/03/17 07:14 Dextrose (Dextrose 50%) STAT PRN IV Hypoglycemia 01/04/17 07:15 02/03/17 07:14 Haloperidol Lactate (Haldol) 5 mg Q6H PRN IM Agitation 01/05/17 16:15 02/04/17 16:14 Heparin Sodium (Porcine) (Heparin 5000 units/ml) 5,000 units EVERY 12 HOURS SUBQ 01/04/17 21:00 02/03/17 20:59 01/05/17 21:41 Levothyroxine Sodium (Synthroid) 50 mcg DAILY ORAL 01/04/17 09:00 02/03/17 08:59 01/05/17 09:18 Losartan Potassium (Cozaar) 50 mg DAILY ORAL 01/06/17 09:00 02/05/17 08:59 Morphine Sulfate (Morphine Sulfate) 1 mg EVERY 4 HOURS PRN IVP For Pain 01/04/17 07:15 01/11/17 07:14 Nateglinide (Starlix) 120 mg TIAC ORAL 01/04/17 13:00 02/03/17 12:59 01/05/17 16:45 Ondansetron HCl (Zofran) 4 mg Q6H PRN IVP Nausea & Vomiting 01/04/17 07:15 02/03/17 07:14 Polyethylene Glycol (Miralax) 17 gm HSPRN PRN ORAL Constipation 01/04/17 07:15 02/03/17 07:14 Risperidone (RisperDAL) 0.5 mg HSPRN PRN ORAL Agitation 01/05/17 21:00 02/04/17 20:59 01/05/17 21:40 Solifenacin (Vesicare) 10 mg DAILY ORAL 01/05/17 09:00 02/04/17 08:59 01/05/17 09:16 Assessment/Plan Status: stable Assessment/Plan Alzheimer dementia by hx Delirium -risperdal .5mg bid as needed -daughter gave consent Chip Durbin M.D. Jan 05, 2017 23:39
[2017-01-06 00:06] VITALS: BP 141/78
[2017-01-06 04:00] VITALS: BP 125/73
[2017-01-06 08:00] VITALS: BP 142/64
[2017-01-06] MEDS ORDERED: Losartan 50mg tab ORAL SCH ×2 (09:00)
[2017-01-06 10:21] VITALS: BP 142/64
[2017-01-06] MEDS: Solifenacin 10mg tab ORAL SCH (10:21)
[2017-01-06] MEDS: Heparin 5000 units/ml inj SUBQ SCH (10:23)
--- NOTE | 2017-01-06 16:40 | Pulmonology Progress Note ---
Assessment/Plan Problems: (1) Encephalopathy acute (2) Alzheimer's dementia with behavioral disturbance (3) Altered mental status Assessment/Plan dc ativan ed hom3 [id number] haldol for agitation psych evaluation reviewed and appreciated. pt/ot Subjective ROS Limited/Unobtainable: No Constitutional: Reports: no symptoms HEENT: Repors: no symptoms Respiratory: Reports: no symptoms Allergies: Coded Allergies: PENICILLINS (Unverified Allergy, Unknown, 01/04/17) Objective Last 24 Hour Vital Signs Date Time Temp Pulse Resp B/P (MAP) Pulse Ox O2 Delivery O2 Flow Rate FiO2 01/06/17 10:21 142/64 01/06/17 08:00 97.7 76 18 142/64 95 Room Air 01/06/17 04:00 97.4 93 20 125/73 96 Room Air 01/06/17 00:06 97.0 75 19 141/78 93 Room Air 01/05/17 20:26 97.7 70 18 125/55 94 Room Air General Appearance: WD/WN HEENT: normocephalic Respiratory/Chest: chest wall non-tender, lungs clear Breasts: no masses Cardiovascular: normal peripheral pulses Abdomen: normal bowel sounds Extremities: no cyanosis 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
--- NOTE | 2017-01-06 17:10 | General Progress Note ---
Assessment/Plan Status: stable Assessment/Plan dementia agitation pt will be discharged dced all psych meds Subjective Neurologic/Psychiatric: Reports: anxiety, depressed, emotional problems Allergies: Coded Allergies: PENICILLINS (Unverified Allergy, Unknown, 01/04/17) Subjective the family would like take the pt home no changes pt is the same Objective Last 24 Hour Vital Signs Date Time Temp Pulse Resp B/P (MAP) Pulse Ox O2 Delivery O2 Flow Rate FiO2 01/06/17 10:21 142/64 01/06/17 08:00 97.7 76 18 142/64 95 Room Air 01/06/17 04:00 97.4 93 20 125/73 96 Room Air 01/06/17 00:06 97.0 75 19 141/78 93 Room Air 01/05/17 20:26 97.7 70 18 125/55 94 Room Air Height (Feet): 5 Height (Inches): 4.00 Weight (Pounds): 150 General Appearance: no apparent distress, alert, confused, overweight Neurologic: alert, disoriented, depressed affect Chip Durbin M.D. Jan 06, 2017 17:10
--- NOTE | 2017-01-07 15:29 | Discharge Summary ---
Discharge Summary Hospital Course Date of Admission Jan 04, 2017 at 03:27 Date of Discharge Jan 06, 2017 at 15:27 Admitting Diagnosis ENCEPHALOPATHY HPI Juan Torres is a 81 year old female who was admitted on Jan 04, 2017 at 03: 27 for Encephalopathy Hospital Course [id number] Discharge Discharge Disposition Patient was discharged to Home with Hospice (50) Discharge Diagnoses: Vero Holman NP Jan 07, 2017 15:29
--- NOTE | 2017-01-08 03:00 | Discharge Summary 2 SIG ---
DATE OF ADMISSION: 01/04/2017 DATE OF DISCHARGE: 01/06/2017 SPINNER HYDRAULIC: Chip Durbin M.D. BRIEF HOSPITAL COURSE: The patient is an 81-year-old female, who has end-stage Alzheimer's disease, was brought in by paramedics due to increased agitation and altered mental status. She was started on low-dose Ativan, which did not help. She was also given temazepam. Son called 911 because agitation was worse. On evaluation at ED, there was no evidence of infection. No evidence of TIA or CVA. EKG was in normal sinus rhythm and chest x-ray showed no acute cardiopulmonary disease. Head CT was negative. She was admitted for acute encephalopathy and dementia with behavioral disturbance. She underwent psychiatric evaluation with Dr. Durbin and was given Risperdal 5 mg b.i.d. Ativan was discontinued. She was given Haldol for agitation. The patient is DNR and was eventually discharged home with hospice. FINAL DIAGNOSES: 1. Acute encephalopathy. 2. Alzheimer's dementia with behavioral disturbance. 3. Delirium. 4. Alzheimer's dementia. DISPOSITION: The patient was discharged under hospice. DISCHARGE MEDICATIONS: Refer to med list. Latasha East M.D. I have been assigned to dictate discharge summary on this account and I was not involved in the patient's management. Vero Holman N.P. DR: MARGARITO JOB#: [id number] CC:
[2017-01-09] MEDS ORDERED: Vitamin D 50,000 units cap ORAL SCH (09:00)
== END 2017-01-06 15:27 | disposition hospice, home (50) | DRG 56 ==
LOC: EDBD 00:55 → EMR 01:11 → 4E 03:27 → EDBEDREQ 04:22
DX: G30.9 Alzheimer's disease, unspecified (principal); G93.40 Encephalopathy, unspecified; F02.81 Dementia in other diseases classified elsewhere, unspecified severity, with behavioral disturbance; F05 Delirium due to known physiological condition; Z66 Do not resuscitate
CPT/HCPCS: 36415; 70450; 71010; 80053; 80061; 81001; 82962; 84443; 84484; 85025; 92610; 93005; 99285